=== PATIENT | female | born 1965 | race Caucasian/White ===

== ENCOUNTER 2018-04-27 14:01 | Emergency (ER) | payer OTHER ==
[~2018-04-27] VITALS: Ht 170.2 cm; Wt 74.8 kg
--- NOTE | 2018-04-27 16:21 | ED GENERAL ADULT ---
History of Present Illness General Chief Complaint: General Adult Stated Complaint: DIZZINESS Source: patient Exam Limitations: no limitations Vital Signs & Intake/Output Vital Signs & Intake/Output Vital Signs Date Time Temp Pulse Resp B/P B/P Pulse O2 O2 Flow FiO2 Mean Ox Delivery Rate 04/27 1513 97.1 56 18 135/70 99 Room Air 04/27 1500 100 Room Air 04/27 1404 98.2 64 18 132/77 100 Room Air Allergies Coded Allergies: No Known Allergies (04/27/18) Reconcile Medications No Known Home Medications Triage Note: 53 year old female biba from work. She states she was sitting at her desk, had just eaten her lunch 20 minutes prior, and began to feel short of breath and palpitations. Her co-workers called EMS. Finger-stick blood sugar was 70. Patient denies any PMH. She is awake, alert, oriented, calm, and cooperative. Skin is warm and dry. She denies any pain at this time and denies sob. Triage Nurses Notes Reviewed? yes HPI: Patient presents for evaluation of "not feeling well" over the past few days. Elevations states that she is experienced dyspnea at work along with lightheadedness and clammy feeling. She states she is also having some ankle swelling secondary to a case of poison linda. She is currently feeling better complaining only of a very mild headache. She denies fever, cold symptoms, orthopnea. She does refer however insomnia over the past 5 years or so for which she takes occasionally Xanax. She states she typically drinks on the weekends but otherwise denies drug use or cigarette smoking. Past History Travel History Traveled to [place] past 21 day No Medical History Any Pertinent Medical History? see below for history Neurological: NONE EENT: NONE Cardiovascular: NONE Respiratory: NONE Gastrointestinal: NONE Hepatic: NONE Renal: NONE Musculoskeletal: NONE Psychiatric: NONE Endocrine: NONE Surgical History Surgical History: non-contributory Psychosocial History What is your primary language Uzbek Tobacco Use: Never used Family History Hx Contributory? No Review of Systems Review of Systems Constitutional: Reports: see HPI. EENTM: Reports: no symptoms. Respiratory: Reports: see HPI. Cardiovascular: Reports: no symptoms. GI: Reports: no symptoms. Genitourinary: Reports: no symptoms. Musculoskeletal: Reports: no symptoms. Skin: Reports: see HPI. Neurological/Psychological: Reports: no symptoms. Hematologic/Endocrine: Reports: no symptoms. Immunologic/Allergic: Reports: no symptoms. All Other Systems: Reviewed and Negative Physical Exam Physical Exam General Appearance: see below Comments: Gen.: Well-nourished, well-developed, no acute respiratory distress. Head: Normocephalic, atraumatic. Eyes: Normal inspection bilaterally Ears: Normal inspection bilaterally Nose: Normal inspection Throat/mouth : Moist mucosa Neck: Supple, full range of motion, no goiter Heart: Regular rate and rhythm, no murmurs rubs or gallops Lungs: Clear to auscultation bilaterally with normal air entry Chest: Nontender Back: Normal range of motion Abdomen: Soft, nontender, nondistended, normal bowel sounds Extremities: Normal range of motion grossly, equal radial pulses, no cyanosis clubbing or edema Neurologic: Cranial nerves grossly intact, speech is clear Skin: warm and dry Psychiatric: Calm, cooperative, no apparent delusions or hallucinations Core Measures ACS in differential dx? No CVA/TIA Diagnosis: No Sepsis Present: No Sepsis Focused Exam Completed? No Progress Differential Diagnoses I considered the following diagnoses in my evaluation of the patient: Dehydration, anemia, electrolyte abnormality, vertigo, CVA Plan of Care: PMD follow-up Initial ED EKG: none Comments: 04/27/2018 4:20:26 PM Monika has now decided against an emergency department evaluation stating that she just can't wait any longer in the emergency department. She will see her primary care physician in [place] in follow-up. Departure Departure Disposition: HOME OR SELF CARE Condition: Stable Clinical Impression Primary Impression: Lightheadedness Secondary Impressions: Poison linda dermatitis Referrals: Unknown (PCP/Family) Additional Instructions: Follow-up with your primary care physician as soon as possible. Elevate your legs as much as possible and maintain a low-salt diet. Return if any concerns or sudden worsening. Thank you for choosing the [facility] Emergency Department for your care. It was a pleasure to serve you today. Dev Ram M.D. [facility] Departure Forms: Customer Survey General Discharge Information Prescriptions: Current Visit Scripts No Known Home Medications Critical Care Note Critical Care Note Critical Care Time: non-applicable
[2018-04-27 16:25] VITALS: BP 128/74
== END 2018-04-27 16:25 ==
LOC: ERH 14:01
DX: R42 Dizziness and giddiness (principal); L23.7 Allergic contact dermatitis due to plants, except food